=== PATIENT | female | born 1960 | race Caucasian/White ===

== ENCOUNTER → 2023-08-23 15:53 | Outpatient (REF) | payer OTHER, SELFPAY | LOC: RAD 15:53 | PROVIDERS: ATTENDING PHYSICIAN Family Medicine | DX: M79.671 Pain in right foot (principal); S27.1XXA Traumatic hemothorax, initial encounter | CPT/HCPCS: 71101; 73630 ==

== ENCOUNTER → 2024-06-01 14:33 | Outpatient (REF) | payer OTHER, SELFPAY | LOC: WDC 14:33 | PROVIDERS: ATTENDING PHYSICIAN Internal Medicine Hematology & Oncology; FAMILY PHYSICIAN Family Medicine | DX: Z12.31 Encounter for screening mammogram for malignant neoplasm of breast (principal) | CPT/HCPCS: 77063; 77067 ==

== ENCOUNTER → 2024-06-16 13:45 | Outpatient (REF) | payer OTHER, SELFPAY | LOC: HWRAD 13:45 | PROVIDERS: ATTENDING PHYSICIAN Family Medicine | DX: R51.9 Headache, unspecified (principal) | CPT/HCPCS: 70450 ==

== ENCOUNTER → 2024-07-24 15:31 | Outpatient (REF) | payer OTHER, SELFPAY | LOC: PAVMRI 15:31 | PROVIDERS: ATTENDING PHYSICIAN Family Medicine | DX: R93.0 Abnormal findings on diagnostic imaging of skull and head, not elsewhere classified (principal) | CPT/HCPCS: 70551 ==

== ENCOUNTER 2024-08-01 11:40 | Emergency (ER) | payer OTHER, SELFPAY ==
[2024-08-01 11:42] VITALS: BP 166/106
[2024-08-01 13:00] VITALS: BP 118/92
[2024-08-01] MEDS: ADACEL 0.5 ML IM (13:12)
--- NOTE | 2024-08-01 13:24 | ED.GENMED ---
History of Present Illness
<Nia Fuentes MD - Last Filed: 08/01/24 14:20>
General
Chief Complaint: Fall
Source: patient and spouse
Time Seen by Provider: 08/01/24 12:11
History of Present Illness
History of Present Illness:
This patient is a 63-year-old female who had a syncopal episode at approximately 10:30 PM last night. She reports donating blood earlier in the day. She had a mixed drink, and then went upstairs to prepare for bedtime. She took a dose of Ambien
and a half of a Xanax. She thinks she was completing urination, as her next memory is being on the floor of the bathroom. She did hit her head and suffered a laceration. She went back to bed, and slept through the night, but noted a laceration in
the morning which concerned her and her . She is not up-to-date on her tetanus. She has a mild headache. She denies neck pain, change in vision, change in speech, dizziness, numbness, tingling, focal weakness, chest pain, shortness of
breath, abdominal pain, nausea, vomiting, or other complaints
Past History
<Nia Fuentes MD - Last Filed: 08/01/24 14:20>
Past History
ED Past Surgical History: Orthopedic and Other (Lumpectomy)
Social History
Tobacco: Non-smoker
Drug: None
Personal:
Living: with family
Phy Exam
<Nia Fuentes MD - Last Filed: 08/01/24 14:20>
Physical Exam
Physical Exam:
GENERAL: Alert , in no apparent distress
EYE: pupils equal and reactive, EOMI, no nystagmus, no photophobia
NECK: Supple, no significant adenopathy, no midline tenderness.
ENT: o/p clr, mmm, no bradshaw, no raccoon..
CARDIAC: Regular rate and rhythm .
LUNGS: Clear breath sounds bilaterally, no acute respiratory distress, no wheezes/rales/rhonchi
ABDOMEN: Soft, without focal tenderness, no r/g, no cvat
NEUROLOGICAL: Alert and oriented, no focal neuro deficits, gait normal, [id number] normal, motor 5 out of 5, sensory intact, cranial nerves II through XII intact
SKIN: Warm and dry, skin intact except for a 7 cm laceration noted at the scalp left posterior occiput area.
MUSCULOSKELETAL: No edema, well perfused.
PSYCH: Normal and appropriate interaction.
Course
<Nia Fuentes MD - Last Filed: 08/01/24 14:20>
Orders/Labs/Results
Orders:
Orders
08/01/24 12:12
CT Head W/o Iv Contrast Urgent
Comment:
Reason For Exam: FALL
08/01/24 12:34
Tetanus/Diphth/Acelpertussis [Adacel] 0.5 ml IM .ONCE ONE
Nursing to Place Non Medication Order As Directed
Physician Order: irrigate wound please
Above order entered?: Yes
08/01/24 12:35
Electrocardiogram (*1) Urgent
Reason for Study: Syncope
EKG- Treatment ONCE
08/01/24 13:31
Complete Blood Count/No Diff Urgent
Comprehensive Metabolic Panel Urgent
Abnormal Lab Results
08/01/24
13:31
RBC 3.64 L 10^6/uL
(4.20-5.40)
Hgb 11.8 L g/dL
(12.0-16.0)
Hct 34.6 L %
(37.0-47.0)
MCH 32.4 H pg
(27.0-31.0)
MPV 11.0 H fL
(7.4-10.4)
BUN 18 H mg/dl
(7-17)
08/01/24 13:31
08/01/24 13:31
Vital Signs
Initial and Last Documented VS:
Initial Vital Signs
Temp Pulse Resp BP Pulse Ox
98.1 F 94 16 166/106 99
08/01/24 11:42 08/01/24 11:42 08/01/24 11:42 08/01/24 11:42 08/01/24 11:42
Last Documented Vital Signs
Temp Pulse Resp BP Pulse Ox
98.1 F 94 16 123/82 99
08/01/24 11:42 08/01/24 11:42 08/01/24 11:42 08/01/24 14:00 08/01/24 14:00
<Denis Gipson PA-C - Last Filed: 08/01/24 15:41>
Orders/Labs/Results
Orders:
Orders
08/01/24 12:12
CT Head W/o Iv Contrast Urgent
Comment:
Reason For Exam: FALL
08/01/24 12:34
Tetanus/Diphth/Acelpertussis [Adacel] 0.5 ml IM .ONCE ONE
Nursing to Place Non Medication Order As Directed
Physician Order: irrigate wound please
Above order entered?: Yes
08/01/24 12:35
Electrocardiogram (*1) Urgent
Reason for Study: Syncope
EKG- Treatment ONCE
08/01/24 13:31
Complete Blood Count/No Diff Urgent
Comprehensive Metabolic Panel Urgent
Abnormal Lab Results
08/01/24
13:31
RBC 3.64 L 10^6/uL
(4.20-5.40)
Hgb 11.8 L g/dL
(12.0-16.0)
Hct 34.6 L %
(37.0-47.0)
MCH 32.4 H pg
(27.0-31.0)
MPV 11.0 H fL
(7.4-10.4)
BUN 18 H mg/dl
(7-17)
08/01/24 13:31
08/01/24 13:31
Vital Signs
Initial and Last Documented VS:
Initial Vital Signs
Temp Pulse Resp BP Pulse Ox
98.1 F 94 16 166/106 99
08/01/24 11:42 08/01/24 11:42 08/01/24 11:42 08/01/24 11:42 08/01/24 11:42
Last Documented Vital Signs
Temp Pulse Resp BP Pulse Ox
98.1 F 94 16 123/82 99
08/01/24 11:42 08/01/24 11:42 08/01/24 11:42 08/01/24 14:00 08/01/24 14:00
Procedures
<Denis Gipson PA-C - Last Filed: 08/01/24 15:41>
Laceration Closure
Left Posterior Scalp:
Size of Wound in cm: 7
Description of Wound Edges: sharp
Preparation: cleaned with saline
Anesthesia: 1% Lidocaine with epi
Skin Closure Material: skin annette
Number of sutures: 10
<Denis Gipson PA-C - Last Filed: 08/01/24 15:41>
*Critical Care Note
Total Time (30-74mins, 75-104mins- exclusive of procedures): Not Applicable
<Nia Fuentes MD - Last Filed: 08/01/24 14:20>
Update Note
Update Note:
Patient presents to the Emergency Department with _syncope with head laceration
Number and Complexity of Problems Addressed at the Encounter
� Chronic conditions affecting care:
� Acute Exacerbation and/or Progression of Chronic Illness:
� Differential Diagnosis includes: But not limited to intracranial bleed, anemia, dehydration, electrolyte abnormality, etc. etc. etc.
Amount and/or Complexity of Data to be Reviewed and Analyzed
� I performed an independent evaluation of and my interpretation is:
EKG: Read by me, normal sinus rhythm, normal rate, normal axis, no acute ischemia
CT: No CT evidence for acute intracranial hemorrhage.
2. Small acute subgaleal hematoma lateral to the left temporal bone.
3. Mild periventricular white matter leukoaraiosis in the frontal lobes.
4. Mild diffuse cerebral and cerebellar volume loss.
Xrays:
Laboratory Studies: Mild anemia noted, patient advised and will follow-up with her doctor concerning
Other:
� Review of other/old records reveals:
� Clinical information was obtained by an independent historian: who is bedside
� Prescriptions/Medications Considered but not given:
� Further testing considered but not performed:
Risk of Complications and/or Morbidity or Mortality of Patient Management
� Social determinants of health affecting care:
� Discussion with other providers (PCP, Hospitalists, Consultants, etc):
� Escalation of care including admission/observation vs risk of discharge considered: Wound repaired by our PA here Fei. Patient advised regarding wound care, portance of follow-up, and reasons return to the ER..
ED Attending Note
<Nia Fuentes MD - Last Filed: 08/01/24 14:20>
-
Portions of this chart may have been created with voice recognition software.� Occasional wrong word or��sound alike� substitutions may have occurred due to the inherent limitations of voice recognition software.
Discharge Plan
Departure
Patient Disposition: Home (Routine Discharge)
Date of Disposition: 08/01/24
Time of Disposition: 14:18
Patient with high blood pressure during this ER visit?: Yes
Condition: Good
Discharge Problem:
Syncope
Instructions: Syncope (fainting), Head Injury in Adults (DC), Laceration Repair With [place] (DC), BLOOD PRESSURE
Referrals:
Lisandro Diez MD [Family Provider] - Keep scheduled appt
Activity Restrictions/Additional Instructions:
PLEASE SEE YOUR FAMILY DOCTOR IN 12 TO 14 DAYS TO HAVE YOUR ANNETTE REMOVED. IF YOU DEVELOP DIZZINESS, FEVER, CHILLS, DRAINAGE, BLEEDING, CHANGE IN VISION, CHANGE IN SPEECH, SEVERE HEADACHE, OR OTHER WORRISOME SIGNS, PLEASE RETURN TO THE ER
IMMEDIATELY. PLEASE SEE ATTACHED LABS AND FOLLOW-UP WITH YOUR DOCTOR CONCERNING WELL.
Interventions
Interventions:
*Risk Screen - Suicide Last Done: 08/01/24 11:44
*General Assessment Last Done: 08/01/24 12:13
*Neglect/Abuse Screening Last Done: 08/01/24 11:44
*ED COVID-19 Vaccine History Last Done: 08/01/24 12:13
*Nursing Disposition Last Done: 08/01/24 14:30
ED-Musculoskeletal Assessment Last Done: 08/01/24 12:13
ED- Neurological Assessment Last Done: 08/01/24 12:13
ED-Skin Assessment Last Done: 08/01/24 12:13
Discharge Date and Time
Discharge Date/Time: 08/01/24 14:31
Print Language: BERMUDIAN
[2024-08-01 13:40] LABS: Hematocrit 34.6 % (37.0-47.0); Hemoglobin 11.8 g/dL (12.0-16.0); Mean Corp Hgb Conc. 34.1 g/dL (33.0-37.0); Mean Corpuscular Hgb 32.4 pg (27.0-31.0); Mean Corpuscular Volume 95.1 fL (81.0-99.0); Platelet Count 255 10^3/uL (130-400); Red Blood Cell Count 3.64 10^6/uL (4.20-5.40); Red Cell Dist. Width 12.4 % (11.5-14.5)
[2024-08-01 13:53] LABS: ALT (SGPT) 27 U/L (0-35); AST (SGOT) 30 U/L (14-36); Albumin 4.7 g/dl (3.5-5.0); Alkaline Phosphatase 79 U/L (38-126); Blood Urea Nitrogen 18 mg/dl (7-17); Calcium 9.7 mg/dl (8.4-10.2); Carbon Dioxide 28 mmol/L (22-30); Chloride 103 mmol/L (98-107); Glucose 95 mg/dl (70-99); Potassium 4.1 mmol/L (3.5-5.1); Sodium 141 mmol/L (135-145); Total Bilirubin 0.8 mg/dl (0.2-1.3); Total Protein 7.3 g/dl (6.3-8.2); eGFR > 60.00
[2024-08-01 14:00] VITALS: BP 123/82
== END 2024-08-01 14:31 | disposition home or self-care (01) ==
LOC: EMR 11:40
PROVIDERS: EMERGENCY PHYSICIAN Emergency Medicine; FAMILY PHYSICIAN Family Medicine
DX: R55 Syncope and collapse (principal); S01.81XA Laceration without foreign body of other part of head, initial encounter; W19.XXXA Unspecified fall, initial encounter; Z23 Encounter for immunization; C50.919 Malignant neoplasm of unspecified site of unspecified female breast
CPT/HCPCS: 99284; 12002; 90471; 70450; 80053; 85027; 90715; 93005

== ENCOUNTER → 2024-08-28 10:12 | Outpatient (REF) | payer OTHER, SELFPAY | LOC: RAD 10:12 | PROVIDERS: ATTENDING PHYSICIAN Specialist; FAMILY PHYSICIAN Family Medicine; OTHER PHYSICIAN Family Medicine | DX: Z96.652 Presence of left artificial knee joint (principal); M25.462 Effusion, left knee; M25.559 Pain in unspecified hip; M54.50 Low back pain, unspecified; M25.569 Pain in unspecified knee | CPT/HCPCS: 72110; 73523; 73564; 78315; A9503 ==